=== PATIENT | female | born 1950 | race Two or more races ===

== ENCOUNTER 2023-03-17 13:56 | Emergency (ER) | payer OTHER ==
[~2023-03-17] VITALS: Ht 154.9 cm; Wt 59.4 kg
[2023-03-17] MEDS ORDERED: INSULIN GL100 UNIT/3 (14:11)
[2023-03-17] MEDS ORDERED: VYZULTA5 ML (14:12)
[2023-03-17] MEDS ORDERED: TRADJENTA5 MG PO (14:12)
[2023-03-17] MEDS ORDERED: FARXIGA10 MG PO (14:12)
[2023-03-17] MEDS ORDERED: AZOR 10-40 MG1 EACH (14:13)
[2023-03-17] MEDS ORDERED: LIPITOR40 M1 PO (14:13)
[2023-03-17] MEDS ORDERED: DIOVAN40 MG PO (14:13)
[2023-03-17] MEDS ORDERED: VITAMIN B-12500 MC3 SL (14:14)
[2023-03-17] MEDS ORDERED: PLAVIX75 MG (14:15)
[2023-03-17] MEDS ORDERED: ACETAMINOPHEN325 M1 (14:16)
[2023-03-17] MEDS ORDERED: GRALISE600 MG (14:16)
== END 2023-03-17 17:18 | disposition home or self-care (01) ==
LOC: ER 13:56
DX: M62.838 Other muscle spasm (principal); Z88.6 Allergy status to analgesic agent
CPT/HCPCS: 93005; 96372; 99284; J1100; J2360

== ENCOUNTER 2024-05-11 10:48 | Emergency (ER) | payer OTHER ==
[~2024-05-11] VITALS: Ht 149.9 cm; Wt 67.1 kg
[~2024-05-11 10:48] MED LIST: ACETAMINOPHEN325 M1; AZOR 10-40 MG1 EACH; DIOVAN40 MG PO; FARXIGA10 MG PO; GRALISE600 MG; INSULIN GL100 UNIT/3; LIPITOR40 M1 PO; PLAVIX75 MG; TRADJENTA5 MG PO; VITAMIN B-12500 MC3 SL; VYZULTA5 ML
[2024-05-11] MEDS ORDERED: ORPHENADRINE CITRATE 30 MG/ML AMPUL IM STA (12:54)
== END 2024-05-11 13:35 | disposition home or self-care (01) ==
LOC: ER 10:50
DX: M54.30 Sciatica, unspecified side (principal); Z88.6 Allergy status to analgesic agent

== ENCOUNTER 2024-06-23 08:19 | Emergency (ER) | payer OTHER ==
[~2024-06-23] VITALS: Ht 149.9 cm; Wt 67.1 kg
[2024-06-23] MEDS ORDERED: SERTRALINE HCL25 MG PO (08:41)
[2024-06-23] MEDS ORDERED: ZANAFLEX2 MG PO (08:41)
[2024-06-23] MEDS ORDERED: ACETAMINOPHEN 500 MG GEL..CAP PO ONE (10:30)
== END 2024-06-23 12:42 | disposition home or self-care (01) ==
LOC: ER 08:21
DX: S83.8X1A Sprain of other specified parts of right knee, initial encounter (principal); Z88.6 Allergy status to analgesic agent

== ENCOUNTER 2024-07-27 06:10 | Day surgery (SDC) | payer OTHER ==
[2024-07-16 09:21] LABS: INR 0.99; PARTIAL THROMBOPLASTIN TIME 26.5 SECONDS (22.0-34.0); PROTHROMBIN TIME 10.8 SECONDS (9.0-11.5)
[2024-07-16 09:49] VITALS: BP 150/70
[~2024-07-27] VITALS: Ht 149.9 cm; Wt 63.5 kg
[~2024-07-27 06:10] MED LIST changes: -AZOR 10-40 MG1 EACH; +AZOR 10-40 MG1 EACH PO; -GRALISE600 MG; +GRALISE600 MG PO; +LANTUS SOL100 UNIT/1; +SERTRALINE HCL25 MG PO; +ZANAFLEX2 MG PO; +ZOLOFT25 MG
[2024-07-27] MEDS ORDERED: CEFAZOLIN SODIUM 1,000 MG VIAL IV ONE (09:00)
[2024-07-27] MEDS ORDERED: METHYLPREDNISOLONE ACETATE 80 MG/ML VIAL IU ONE (09:00)
[2024-07-27] MEDS ORDERED: EPINEPHRINE HCL/PF 1 MG/ML AMPUL IR ONE (09:00)
[2024-07-27] MEDS ORDERED: PROMETHAZINE HCL 25 MG/ML AMPUL IM PRN (10:00)
[2024-07-27] MEDS ORDERED: MEPERIDINE HCL/PF 25 MG/ML VIAL IM PRN (10:00)
[2024-07-27] MEDS ORDERED: OxyCODONE HCL/APAP UD (PERCOCET) PO PRN (10:00)
[2024-07-27] MEDS ORDERED: DUI500 PO (10:01)
[2024-07-27] MEDS ORDERED: TRAM1TAB98 PO (10:01)
[2024-07-27] MEDS ORDERED: CEFADROXIL 500 MG CAPSULE PO SCH (21:00)
== END 2024-07-27 14:20 | disposition home or self-care (01) ==
LOC: CIR.AMB 06:10
PROVIDERS: ATTEND Orthopaedic Surgery Sports Medicine
DX: S83.232A Complex tear of medial meniscus, current injury, left knee, initial encounter (principal); M17.12 Unilateral primary osteoarthritis, left knee; M22.42 Chondromalacia patellae, left knee; M23.52 Chronic instability of knee, left knee; M67.52 Plica syndrome, left knee; Z88.6 Allergy status to analgesic agent; E78.00 Pure hypercholesterolemia, unspecified; D64.9 Anemia, unspecified